=== PATIENT | female | born 2000 | race Caucasian/White ===

== ENCOUNTER 2021-07-04 17:48 | Inpatient (IN) | payer MEDICAID, OTHER ==
--- NOTE | 2021-07-04 19:53 | ED ---
Psych HPI - General Chief Complaint: Psychiatric Symptoms Stated Complaint: Mental health eval Time Seen by Provider: 07/04/21 19:19 Source: patient, family, RN notes reviewed Mode of arrival: ambulatory - History of Present Illness Initial Comments: 21-year-old female with a long history depression who states he try to kill her self for last 2 days she states she tried drown herself in a bathtub which did not work well she try to take a bunch of her medications with vodka that didn't work either. She states she slept for about 12 hours she denies any alcohol in the last day or so she does use recreational marijuana. She states she did feeling very depressed ever since her child from [place] earlier in 2020. No other current complaints or modifying factors per brother was present in the room during my interview MD Complaint: suicidal ideation, feels depressed - Related Data Home Medications Medication Instructions Recorded Confirmed ARIPiprazole [Abilify] 15 mg PO DAILY@1200 07/04/21 07/04/21 LORazepam [Ativan] 0.5 - 1 mg PO BID PRN 07/04/21 07/04/21 Allergies Allergy/AdvReac Type Severity Reaction Status Date / Time No Known Allergies Allergy Verified 07/04/21 20:43 Review of Systems ROS Statement: Those systems with pertinent positive or pertinent negative responses have been documented in the HPI. ROS Other: All systems not noted in ROS Statement are negative. Past Medical History Past Medical History: No Reported History History of Any Multi-Drug Resistant Organisms: None Reported Past Surgical History: No Surgical Hx Reported Past Psychological History: Anxiety, Depression Smoking Status: Current every day smoker Past Alcohol Use History: Occasional Past Drug Use History: Marijuana - Past Family History Mother Family Medical History: Hyperlipidemia General Exam - General Exam Comments Initial Comments: This is a well-developed well-nourished awake alert oriented 3 female Limitations: no limitations General appearance: alert, in no apparent distress Head exam: Present: atraumatic, normocephalic, normal inspection Eye exam: Present: normal appearance, PERRL, EOMI. Absent: scleral icterus, conjunctival injection, periorbital swelling ENT exam: Present: normal exam, mucous membranes moist Neck exam: Present: normal inspection. Absent: tenderness, meningismus, lymphadenopathy Respiratory exam: Present: normal lung sounds bilaterally. Absent: respiratory distress, wheezes, rales, rhonchi, stridor Cardiovascular Exam: Present: regular rate, normal rhythm, normal heart sounds. Absent: systolic murmur, diastolic murmur, rubs, gallop, clicks GI/Abdominal exam: Absent: distended, tenderness, guarding, rebound, rigid Extremities exam: Present: normal inspection, full ROM, normal capillary refill. Absent: tenderness, pedal edema, joint swelling, calf tenderness Back exam: Present: normal inspection Neurological exam: Present: alert, oriented X3, CN II-XII intact Psychiatric exam: Present: depressed, suicidal ideation Skin exam: Present: warm, dry, intact, normal color. Absent: rash Course Vital Signs 07/04/21 07/04/21 17:53 19:43 Temperature 98.7 F 98.5 F Pulse Rate 95 91 Respiratory 20 16 Rate Blood Pressure 113/76 109/62 O2 Sat by Pulse 99 100 Oximetry - Reevaluation(s) Reevaluation #1: 07/04/21 20:22 Evaluation process the patient's care will be endorsed to Dr. Hernandez at our shift change at 9 PM Medical Decision Making - Medical Decision Making The patient was endorsed to the night time doctor pending EPS eval and was admitted - Lab Data Lab Results 07/04/21 07/04/21 07/04/21 Range/Units 20:03 20:03 20:03 Urine Color Urine Appearance (Clear) Urine pH (5.0-8.0) Ur Specific [place] (1.001-1.035) Urine Protein (Negative) Urine Glucose (UA) (Negative) Urine Ketones (Negative) Urine Blood (Negative) Urine Nitrite (Negative) Urine Bilirubin (Negative) Urine Urobilinogen (<2.0) mg/dL Ur Leukocyte Esterase (Negative) Urine RBC (0-5) /hpf Urine WBC (0-5) /hpf Ur Squamous Epith Cells (0-4) /hpf Amorphous Sediment (None) /hpf Urine Bacteria (None) /hpf Urine Mucus (None) /hpf Urine HCG, Qual Not Detected (Not Detectd) Salicylates <1.0 mg/dL Urine Opiates Screen Not Detected (NotDetected) Ur Oxycodone Screen Not Detected (NotDetected) Urine Methadone Screen Not Detected (NotDetected) Ur Propoxyphene Screen Not Detected (NotDetected) Acetaminophen <10.0 ug/mL Ur Barbiturates Screen Not Detected (NotDetected) U Tricyclic Antidepress Not Detected (NotDetected) Ur Phencyclidine Scrn Not Detected (NotDetected) Ur Amphetamines Screen Not Detected (NotDetected) U Methamphetamines Scrn Not Detected (NotDetected) U Benzodiazepines Scrn Detected H (NotDetected) Urine Cocaine Screen Not Detected (NotDetected) U Marijuana (THC) Screen Detected H (NotDetected) Coronavirus (PCR) (Not Detectd) 07/05/21 07/05/21 Range/Units 00:00 00:55 Urine Color Yellow Urine Appearance Turbid H (Clear) Urine pH 7.0 (5.0-8.0) Ur Specific [place] 1.027 (1.001-1.035) Urine Protein Trace H (Negative) Urine Glucose (UA) Negative (Negative) Urine Ketones Negative (Negative) Urine Blood Negative (Negative) Urine Nitrite Negative (Negative) Urine Bilirubin Negative (Negative) Urine Urobilinogen 8.0 (<2.0) mg/dL Ur Leukocyte Esterase Large H (Negative) Urine RBC 5 (0-5) /hpf Urine WBC 118 H (0-5) /hpf Ur Squamous Epith Cells 3 (0-4) /hpf Amorphous Sediment Occasional H (None) /hpf Urine Bacteria Rare H (None) /hpf Urine Mucus Rare H (None) /hpf Urine HCG, Qual (Not Detectd) Salicylates mg/dL Urine Opiates Screen (NotDetected) Ur Oxycodone Screen (NotDetected) Urine Methadone Screen (NotDetected) Ur Propoxyphene Screen (NotDetected) Acetaminophen ug/mL Ur Barbiturates Screen (NotDetected) U Tricyclic Antidepress (NotDetected) Ur Phencyclidine Scrn (NotDetected) Ur Amphetamines Screen (NotDetected) U Methamphetamines Scrn (NotDetected) U Benzodiazepines Scrn (NotDetected) Urine Cocaine Screen (NotDetected) U Marijuana (THC) Screen (NotDetected) Coronavirus (PCR) Not Detected (Not Detectd) Disposition Clinical Impression: Depression, Suicidal ideation Disposition: TRANSFER TO PSYCH HOSP/UNIT Condition: Stable
[2021-07-04 20:36] LABS: Amphetamine Screen,Urine Not Detected (NotDetected); Barbiturate Screen,Urine Not Detected (NotDetected); Benzodiazepines Screen,Urine Detected (NotDetected); Cocaine Screen,Urine Not Detected (NotDetected); Methadone Screen, Urine Not Detected (NotDetected); Opiate Screen,Urine Not Detected (NotDetected); Oxycodone Screen, Urine Not Detected (NotDetected); Phencyclidine Screen,Urine Not Detected (NotDetected); Tricyclic Antidepressant,Urine Not Detected (NotDetected); Urn Cannabinoid Scrn Detected (NotDetected)
[2021-07-04 20:39] LABS: Acetaminophen <10.0 ug/mL; Salicylate <1.0 mg/dL
[2021-07-05] MEDS ORDERED: ACETAMINOPHEN TAB 325 MG TAB PO STA (01:01)
[2021-07-05] MEDS ORDERED: IBUPROFEN 600 MG TAB PO STA (01:01)
[2021-07-05] MEDS ORDERED: HALOPERIDOL LACTATE 5 MG/ML 1 ML VIAL IM PRN (01:41)
[2021-07-05] MEDS ORDERED: MAG HYDROX/AL HYDROX/SIMETH 30 ML CUP PO PRN (01:41)
[2021-07-05] MEDS ORDERED: LORazepam 1 MG TAB PO PRN (01:41)
[2021-07-05] MEDS ORDERED: haloperidoL 5 MG TAB PO PRN (01:46)
[2021-07-05] MEDS ORDERED: LORazepam 2 MG/ML INJ IM PRN (01:46)
[2021-07-05 02:13] LABS: Amorphous Sediment,Urine Occasional /hpf; Appearance,Urine Turbid (Clear); Bacteria,Urine Rare /hpf; Bilirubin,Urine Negative (Negative); Blood,Urine Negative (Negative); Color,Urine Yellow; Glucose,Urine (UA) Negative (Negative); Ketones,Urine Negative (Negative); Leukocyte Esterase,Urine Large (Negative); Mucus,Urine Rare /hpf; Nitrite,Urine Negative (Negative); Protein,Urine Trace (Negative); RBC,Urine 5 /hpf (0-5); Specific Gravity,Urine 1.027 (1.001-1.035); Squamous Epithelial Cell,Urine 3 /hpf (0-4); WBC,Urine 118 /hpf (0-5)
[2021-07-05] MEDS ORDERED: lamoTRIgine 25 MG TAB PO SCH (12:30)
--- NOTE | 2021-07-05 12:32 | P.HP ---
Psychiatric H&P - . H&P Date: 07/05/21 History & Physical: Allergies Allergy/AdvReac Type Severity Reaction Status Date / Time No Known Allergies Allergy Verified 07/04/21 20:43 Vital Signs Temp 97.7 F 07/05/21 08:00 Pulse 124 H 07/05/21 08:00 Resp 16 07/05/21 08:00 BP 105/52 07/05/21 08:00 Pulse Ox 100 07/05/21 08:00 Intake & Output 07/04/21 07/05/21 07/05/21 18:59 06:59 18:59 Weight 61.235 kg 61.235 kg Laboratory Last Values Urine Color Yellow 07/05/21 00:00 Urine Appearance Turbid (Clear) H 07/05/21 00:00 Urine pH 7.0 (5.0-8.0) 07/05/21 00:00 Ur Specific [place] 1.027 (1.001-1.035) 07/05/21 00:00 Urine Protein Trace (Negative) H 07/05/21 00:00 Urine Glucose (UA) Negative (Negative) 07/05/21 00:00 Urine Ketones Negative (Negative) 07/05/21 00:00 Urine Blood Negative (Negative) 07/05/21 00:00 Urine Nitrite Negative (Negative) 07/05/21 00:00 Urine Bilirubin Negative (Negative) 07/05/21 00:00 Urine Urobilinogen 8.0 mg/dL (<2.0) 07/05/21 00:00 Ur Leukocyte Esterase Large (Negative) H 07/05/21 00:00 Urine RBC 5 /hpf (0-5) 07/05/21 00:00 Urine WBC 118 /hpf (0-5) H 07/05/21 00:00 Ur Squamous Epith Cells 3 /hpf (0-4) 07/05/21 00:00 Amorphous Sediment Occasional /hpf (None) H 07/05/21 00:00 Urine Bacteria Rare /hpf (None) H 07/05/21 00:00 Urine Mucus Rare /hpf (None) H 07/05/21 00:00 Urine HCG, Qual Not Detected (Not Detectd) 07/04/21 20:03 Salicylates <1.0 mg/dL 07/04/21 20:03 Urine Opiates Screen Not Detected (NotDetected) 07/04/21 20:03 Ur Oxycodone Screen Not Detected (NotDetected) 07/04/21 20:03 Urine Methadone Screen Not Detected (NotDetected) 07/04/21 20:03 Ur Propoxyphene Screen Not Detected (NotDetected) 07/04/21 20:03 Acetaminophen <10.0 ug/mL 07/04/21 20:03 Ur Barbiturates Screen Not Detected (NotDetected) 07/04/21 20:03 U Tricyclic Antidepress Not Detected (NotDetected) 07/04/21 20:03 Ur Phencyclidine Scrn Not Detected (NotDetected) 07/04/21 20:03 Ur Amphetamines Screen Not Detected (NotDetected) 07/04/21 20:03 U Methamphetamines Scrn Not Detected (NotDetected) 07/04/21 20:03 U Benzodiazepines Scrn Detected (NotDetected) H 07/04/21 20:03 Urine Cocaine Screen Not Detected (NotDetected) 07/04/21 20:03 U Marijuana (THC) Screen Detected (NotDetected) H 07/04/21 20:03 Coronavirus (PCR) Not Detected (Not Detectd) 07/05/21 00:55 07/05/21 12:25 IDENTIFYING DATA: Patient is a 21-year-old female who is currently living alone in the house has 2 kids and currently works in a factory. HPI: Patient presented to the hospital yesterday with complaints of depression and a overdose at home. Patient was admitted voluntarily to the mental health unit. Patient is being followed by Dr. Silvestre at [facility] was previously on Abilify. Patient was seen today participating in group and agreeable to speak to writer producer in the office. She appeared to be fairly tearful during the interview and states that she's been feeling depressed and anxious. She claims that she has been dealing with this chronically however most recently has been increasing. She claims that she was having suicidal thoughts and tried to overdose on 10 pills of Ativan at home. She claims that she also drink alcohol approximately 4 shots. She states that she slept for 12 hours and then woke up Thursday. She states that she told her mom and also human resources at work who referred her to a counselor. She states that after she spoke with a counselor they advised her to go to the hospital. Patient did mention that she has been going through a significant stressor recently as her daughter 9 months ago due to covid. She states that she has not been coping well at all with this. She states that she's been sleeping a lot at home. She states that her anxiety has been more severe. She claims that she is not having any paranoia not endorsing any delusions. She states she sleeps approximately 7 hours a night. Denying any nightmares. She did mention that she has a history of manic episodes where she does not need any sleep and engages in risky behaviors. She states that these last about 2 days. Patient denies any current suicidal or homicidal ideations intent or plan. At this time patient denies any auditory or visual hallucinations. Patient denies any flight of ideas racing thoughts and increased in goal directed behavior. Patient admits to using marijuana occasionally. She states that she uses nicotine products. PAST PSYCHIATRIC HISTORY: Patient states that she has a history of bipolar depression. She was previously on Abilify. Patient denies any previous psychiatric hospitalizations. She claims that she currently follows up with Dr. Silvestre at [facility]. She states that she has had 2 overdoses in the past on pills. PMH:denies ALLERGIES: as per EMR CHEMICAL DEPENDENCY HISTORY: as per HPI FAMILY PSYCHIATRIC/SUBSTANCE USE HISTORY: States that her mother has de pression. She claims that both her brother has some form of mental illness. SOCIAL HISTORY: Patient was born and raised in [facility]. She states that she completed high school. 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 She states that she has 2 kids. He is currently and living alone in a house. She denies any legal history. MENTAL STATUS EXAM: General Appearance: Patient appears to be tearful, wearing glasses, stated age is alert, directable, and attempts to cooperate. Patient appears to have poor hygiene and grooming. Behavior: Patient is seated without any agitated behavior. Tearful. Speech: Patient's speech is fluent and nonpressured. Hesitant. Mood/Affect: Patient reports their mood is depressed and anxious, affect is congruent Suicidality/Homicidality: Patient denies having any homicidal ideation intent or plan. Denies any suicidal ideations intent or plan Perceptions: Patient denies any visual hallucinations and denies any auditory hallucinations Though content/process: There is no evidence of any delusional thought content and thought process is linear and goal-directed. [place] Memory and concentration: AOX3, grossly intact for the purposes of this session. Can spell "WORLD" backwards Judgment and insight: poor STRENGTHS/WEAKNESSES: strength is that patient is resilient. Weakness is that patient has poor judgment and is impulsive INTELLECT: average IMPRESSIONS: Bipolar disorder, current depression anxiety disorder NOS Cannabis use disorder mild Nicotine dependence PLAN: -Patient is admitted under voluntary status to MHU for stabilization of psychiatric symptoms and safety. Patient has signed adult voluntary form and medication consent and is placed in patient's chart. -Medications : Will start patient on Lamictal 25 mg twice a day for mood stabilization/depression. plan will be to increase to 50mg bid over the weekend. spoke with patient about monitoring for a rash and pt agreed and verbally understood. zoloft 50 mg daily for mood/anxiety. -Ativan and Haldol PRN for agitation/aggression -Patient was counselled on substance abuse and desired to cut back on use -Patient was informed of the risks, benefits and side effects of the medication and patient verbally consented to taking the medications. Patient signed med consent form and was placed in chart. -Internal Medicine consult to perform medical evaluation and physical. -NRT - nicotine patch -SW on board for discharge planning. Encourage patient to participate in groups to work on coping skills.
[2021-07-05] MEDS: SERTRALINE 50 MG TAB PO SCH (14:44)
[2021-07-05] MEDS: lamoTRIgine 25 MG TAB PO SCH ×2 (14:44→20:20)
--- NOTE | 2021-07-05 23:24 | P.CONS ---
History of Present Illness - Reason for Consult Consult date: 07/05/21 - History of Present Illness The patient is a 21-year-old female with a PMH of marijuana abuse who presented to the emergency room with complaints of depression and suicidal ideation. The patient reports that she recently lost her 2 month old daughter to COVID and that it has been very difficult for her. She reports attempting to commit suicide by taking 10 of her oral Ativan's along with alcohol. She notes waking up roughly 12 hours later. She denied any additional complaints. She denied chest discomfort, shortness of, chills, cough, nausea, vomiting. Denied urinary complaints. Review of systems: Pertinent positives and negatives as discussed in HPI, a complete review of systems was performed and all other systems are negative. Physical examination: General: non toxic, no distress, appears at stated age, normal weight Derm: no unusual rashes/lesions no unusual ecchymoses, warm, dry Head: atraumatic, normocephalic, symmetric Eyes: EOMI, no lid lag, anicteric sclera, pupils equal round reactive to light ENT: Nose and ears atraumatic, no thrush, no pharyngeal erythema Neck: No thyromegaly, no cervical lymphadenopathy, trachea midline, supple Mouth: no lip lesion, mucus membranes moist Cardiovascular: S1S2 reg, no murmur, positive posterior tibial pulse bilateral, no edema, capillary refill less than 2 seconds Lungs: CTA bilateral, no rhonchi, no rales , no accessory muscle use Abdominal: soft, nontender to palpation, no guarding, no appreciable organomegaly, normal bowel sounds Ext: no gross muscle atrophy, muscle strength 5 out of 5 in all 4 extremities grossly, no contractures, Neuro: CN II-XI grossly intact, light touch intact all 4 extremities, finger to nose within normal limits, Psych: Alert, oriented, appropriate affect Assessment/plan Abnormal UA -Likely colonization as patient is denying any urinary complaints -Hold off on antibiotic at this time Marijuana abuse -Advised on importance of cessation Depression and suicidal ideation -As per psychiatry Thank you for allowing us to participate in the care of this patient. We will follow peripherally. Do not hesitate to contact us with questions. Someone can be reached from the [facility] hospitalist group at all hours of the day at [phone]. Past Medical History Past Medical History: No Reported History History of Any Multi-Drug Resistant Organisms: None Reported Past Surgical History: No Surgical Hx Reported Past Anesthesia/Blood Transfusion Reactions: No Reported Reaction Past Psychological History: Anxiety, Depression Smoking Status: Vaper Past Alcohol Use History: Rare Past Drug Use History: Marijuana - Past Family History Mother Family Medical History: Hyperlipidemia Medications and Allergies Home Medications Medication Instructions Recorded Confirmed Type ARIPiprazole [Abilify] 15 mg PO DAILY@1200 07/04/21 07/04/21 History LORazepam [Ativan] 0.5 - 1 mg PO BID PRN 07/04/21 07/04/21 History Allergies Allergy/AdvReac Type Severity Reaction Status Date / Time No Known Allergies Allergy Verified 07/04/21 20:43 Physical Exam Vitals: Vital Signs Temp Pulse Resp BP Pulse Ox 07/05/21 08:00 97.7 F 124 H 16 105/52 100 07/05/21 02:46 97.8 F 74 16 100/52 97 Results Labs: Abnormal Lab Results - Last 24 Hours (Table) 07/05/21 Range/Units 00:00 Urine Appearance Turbid H (Clear) Urine Protein Trace H (Negative) Ur Leukocyte Esterase Large H (Negative) Urine WBC 118 H (0-5) /hpf Amorphous Sediment Occasional H (None) /hpf Urine Bacteria Rare H (None) /hpf Urine Mucus Rare H (None) /hpf
[2021-07-06] MEDS: lamoTRIgine 25 MG TAB PO SCH ×2 (08:41→21:12)
[2021-07-06] MEDS: SERTRALINE 50 MG TAB PO SCH (08:41)
[2021-07-06 09:23] LABS: Basophils # (A) 0.1 k/uL (0-0.2); Basophils % (A) 1 %; Eosinophils # (A) 0.1 k/uL (0-0.7); Eosinophils % (A) 2 %; HCT 44.8 % (34.0-46.0); HGB 14.5 gm/dL (11.4-16.0); Lymphocytes % (A) 29 %; MCH 28.7 pg (25.0-35.0); MCHC 32.2 g/dL (31.0-37.0); MCV 89.1 fL (80.0-100.0); Mean Platelet Volume 9.1; Monocytes # (A) 0.3 k/uL (0-1.0); Monocytes % (A) 4 %; Neutrophils # (A) 4.4 k/uL (1.3-7.7); Neutrophils % (A) 63 %; Platelet Count 193 k/uL (150-450); RBC 5.03 m/uL (3.80-5.40); RDW 13.7 % (11.5-15.5)
[2021-07-06 09:31] LABS: ALT 13 U/L (4-34); AST 21 U/L (14-36); African American GFR (CKD) >90 (>60 ml/min/1.73 sqM); Albumin 4.3 g/dL (3.5-5.0); Alkaline Phosphatase 64 U/L (38-126); Anion Gap 6 mmol/L; Blood Urea Nitrogen 12 mg/dL (7-17); Calcium 9.8 mg/dL (8.4-10.2); Carbon Dioxide 26 mmol/L (22-30); Chloride 106 mmol/L (98-107); Glucose 57 mg/dL (74-99); Non-African American GFR(CKD) >90 (>60 ml/min/1.73 sqM); Potassium 4.3 mmol/L (3.5-5.1); Sodium 138 mmol/L (137-145); Total Bilirubin 0.7 mg/dL (0.2-1.3); Total Protein 7.3 g/dL (6.3-8.2)
--- NOTE | 2021-07-06 13:20 | P.PN ---
Progress Note - Text Progress Note Date: 07/06/21 Interval History: Patient was seen in her room and was directable and agreeable to speak with typewriter ribbon winder. Patient states that she has a history of bipolar depression. She was previously on Abilify. Patient denies any previous psychiatric hospitalizations. She claims that she currently follows up with Dr. Silvestre at [facility]. She states that she has had 2 overdoses in the past on pills.. At this time patient denies any suicidal or homical ideations, intent or plan. Patient denies any auditory, visual hallucinations and denies any paranoia or delusions. Patient denies any side effects from the medications and has been compliant with meds. Mental Status Exam: General Appearance: Patient appears to be stated age is alert, directable, and cooperative. Behavior: Patient is calmly seated without any agitated behavior. Speech: Patient's speech is fluent and nonpressured. Mood/Affect: Mood is improving mildly, affect is congruent and constricted. Suicidality/Homicidality: Patient denies having any suicidal or homicidal ideation intent or plan. Perceptions: Patient denies any visual hallucinations and denies any auditory hallucinations Though content/process: There is no evidence of any delusional thought content and thought process is linear and goal-directed. Memory and concentration: AOX3, grossly intact for the purposes of this session Judgment and insight: Improving mildly Assessment This patient was admitted with depressive symptomatology and continues to show symptoms of her depression necessitating hospitalization. Plan: -Patient continues to meet criteria for inpatient psychiatric admission for symptom stabilization and safety. -Medications: Continue medications as before -When necessary Ativan and Haldol for agitation/aggression. -SW on board for discharge planning. Encouraged the patient to participate in milieu.
[2021-07-06] MEDS: ACETAMINOPHEN TAB 325 MG TAB PO PRN ×2 (14:39→21:13)
[2021-07-06 21:18] LABS: Glucose,Whole Blood 92 mg/dL (75-99)
[2021-07-06] MEDS: MAGNESIUM HYDROXIDE 2,400 MG/10 ML CUP PO PRN (21:40)
[2021-07-07 07:32] LABS: Glucose,Whole Blood 87 mg/dL (75-99)
[2021-07-07 08:24] VITALS: RESP 16
[2021-07-07] MEDS: ACETAMINOPHEN TAB 325 MG TAB PO PRN ×2 (08:29→12:42)
[2021-07-07] MEDS: lamoTRIgine 25 MG TAB PO SCH ×2 (08:30→20:51)
[2021-07-07] MEDS: SERTRALINE 50 MG TAB PO SCH (08:30)
[2021-07-07] MEDS: polyethylene glycoL 3350 17 GM POWD.PACK PO SCH (08:48)
--- NOTE | 2021-07-07 12:45 | P.PN ---
Progress Note - Text Progress Note Date: 07/07/21 Interval History: Patient was seen in the office with the office door open and was directable and agreeable to speak with song writer. This 21-year-old female stated that she attempted suicide for the first time. She stated that she continues to take Lamictal and Zoloft.. At this time patient denies any suicidal or homical ideations, intent or plan. Patient denies any auditory, visual hallucinations and denies any paranoia or delusions. Patient denies any side effects from the medications and has been compliant with meds. Mental Status Exam: General Appearance: Patient appears to be stated age is alert, directable, and cooperative. Behavior: Patient is calmly seated without any agitated behavior. Speech: Patient's speech is fluent and nonpressured. Mood/Affect: Mood is improving mildly, affect is congruent and constricted. Suicidality/Homicidality: Patient denies having any suicidal or homicidal ideation intent or plan. Perceptions: Patient denies any visual hallucinations and denies any auditory hallucinations Though content/process: There is no evidence of any delusional thought content and thought process is linear and goal-directed. Memory and concentration: AOX3, grossly intact for the purposes of this session Judgment and insight: Improving mildly Assessment Patient was admitted to Hospital with the depression and overdose. Plan: -Patient continues to meet criteria for inpatient psychiatric admission for symptom stabilization and safety. -Medications: Continue medication as before -When necessary Ativan and Haldol for agitation/aggression. -SW on board for discharge planning. Encouraged the patient to participate in milieu.
[2021-07-07] MEDS: MAGNESIUM HYDROXIDE 2,400 MG/10 ML CUP PO PRN (21:01)
[2021-07-08] MEDS: MAGNESIUM HYDROXIDE 2,400 MG/10 ML CUP PO PRN (05:56)
[2021-07-08] MEDS: polyethylene glycoL 3350 17 GM POWD.PACK PO SCH (08:47)
[2021-07-08] MEDS: lamoTRIgine 25 MG TAB PO SCH (08:47)
[2021-07-08] MEDS: SERTRALINE 50 MG TAB PO SCH (08:47)
[2021-07-08 08:48] VITALS: BP 120/60; PULSE 76; TEMP 98.6
--- NOTE | 2021-07-08 11:26 | P.DS ---
Providers Date of admission: 07/05/21 01:40 Expected date of discharge: 07/08/21 Attending physician: Handy Page MD Consults: 07/05/21 01:41 Consult Physician Routine Consulting Provider: Nini Physician Consult Reason/Comments: h&p Do you want consulting provider notified?: Yes Primary care physician: Tanisha Willard MD - Discharge Diagnosis(es) (1) Bipolar disorder current episode depressed Current Visit: Yes Status: Acute Priority: High (2) Anxiety disorder Current Visit: Yes Status: Acute Priority: Medium (3) Cannabis use disorder, mild, abuse Current Visit: Yes Status: Acute Priority: Low (4) Nicotine dependence Current Visit: Yes Status: Acute Priority: Low Hospital Course: Admission HPI: Admission note was completed by magazine writer "Patient is a 21-year-old female who is currently living alone in the house has 2 kids and currently works in a factory. Patient presented to the hospital yesterday with complaints of depression and a overdose at home. Patient was admitted voluntarily to the mental health unit. Patient is being followed by Dr. Silvestre at [facility] was previously on [facility]. Patient was seen today participating in group and agreeable to speak to magazine writer in the office. She appeared to be fairly tearful during the interview and states that she's been feeling depressed and anxious. She claims that she has been dealing with this chronically however most recently has been increasing. She claims that she was having suicidal thoughts and tried to overdose on 10 pills of Ativan at home. She claims that she also drink alcohol approximately 4 shots. She states that she slept for 12 hours and then woke up Thursday. She states that she told her mom and also human resources at work who referred her to a counselor. She states that after she spoke with a counselor they advised her to go to the hospital. Patient did mention that she has been going through a significant stressor recently as her daughter 9 months ago due to covid. She states that she has not been coping well at all with this. She states that she's been sleeping a lot at home. She states that her anxiety has been more severe. She claims that she is not having any paranoia not endorsing any delusions. She states she sleeps approximately 7 hours a night. Denying any nightmares. She did mention that she has a history of manic episodes where she does not need any sleep and engages in risky behaviors. She states that these last about 2 days. Patient denies any current suicidal or homicidal ideations intent or plan. At this time patient denies any auditory or visual hallucinations. Patient denies any flight of ideas racing thoughts and increased in goal directed behavior. Patient admits to using marijuana occasi onally. She states that she uses nicotine products." Hospital course: Upon admission to the unit patient was directable and agreeable to commence treatment and signed adult voluntary form. Patient got along well with other patients on the unit and followed unit protocol. Patient was compliant with the medications and denied any side effects throughout hospital course. Patient was started on Lamictal and titrated up to a dose of 100 mg daily for mood stabilization/depression, Zoloft 50 mg daily for mood/anxiety. Patient spoke of her stressors and engaged in therapy both group and individual. Patient was also seen by medical team for history and physical exam. Throughout the course of the hospitalization patient gradually improved with regards to mood, anxiety, sleep and became more future oriented with improved insight and judgment. On the day of discharge patient denied any suicidal or homicidal ideations intent or plan denied any auditory or visual hallucinations. Patient endorsed wanting to live for her health and her children. The patient denied any access to guns or weapons. Patient denied any paranoia and did not endorse any delusions. Patient does not have a significant history of substance abuse however was counseled on abstaining from all substances including alcohol and marijuana. Patient was also counseled on the medications and need for regular compliance and was encouraged to follow-up with their outpatient appointment for mental health and also for primary care. Prior to discharge a family meeting will be arranged by social economist to answer any questions and ensure safety upon discharge. Mental status exam: General Appearance: Patient appears to be stated age is alert, pleasant, and cooperative. Patient is in no acute distress and has improved hygiene and grooming Behavior: Patient is calmly seated without any agitated behavior. Speech: Patient's speech is fluent and nonpressured. Mood/Affect: Patient reports their mood is "good", affect is congruent and euthymic. Suicidality/Homicidality: Patient denies having any suicidal or homicidal ideation intent or plan. Perceptions: Patient denies any auditory or visual hallucinations. Though content/process: There is no evidence of any delusional thought content and thought process is linear and goal-directed. more future oriented Memory and concentration: AOX3, grossly intact for the purposes of this session. Can spell "WORLD" backwards correctly. Judgment and insight: improved with guarded prognosis Impression: Bipolar disorder, current episode depressed Anxiety disorder unspecified Cannabis use disorder mild Nicotine dependence Plan: -Continue with discharge today as patient has improved and stabilized psychiatrically and is not currently an imminent threat to himself and/or others. Patient will remain at chronically elevated risk for harm to self and/or others due to her impulsivity. -Continue medications: Lamictal 100 mg daily for mood stabilization/depression, Zoloft 50 mg daily for mood/anxiety. -Patient was counseled on the need for medication compliance and appropriate follow-up at mental health and also primary care for medical issues. Patient verbalized understanding and agreed. -Social work to arrange for and conduct family meeting to ensure safety upon discharge and answer any questions/concerns. Social work also to arrange for patients follow up appointments for psychiatric care along with follow up with primary care provider. -Patient counseled on abstaining from recreational drugs and marijuana and alcohol. Was informed/educated on the adverse effects on their physical and mental health. Patient verbally agreed and understood. -Patient was instructed to return to the hospital or seek immediate medical care if their psychiatric or medical symptoms do worsen or reoccur. Allergies Allergy/AdvReac Type Severity Reaction Status Date / Time No Known Allergies Allergy Verified 07/04/21 20:43 Laboratory Results WBC 7.0 k/uL (3.8-10.6) 07/06/21 08:46 RBC 5.03 m/uL (3.80-5.40) 07/06/21 08:46 Hgb 14.5 gm/dL (11.4-16.0) 07/06/21 08:46 Hct 44.8 % (34.0-46.0) 07/06/21 08:46 MCV 89.1 fL (80.0-100.0) 07/06/21 08:46 MCH 28.7 pg (25.0-35.0) 07/06/21 08:46 MCHC 32.2 g/dL (31.0-37.0) 07/06/21 08:46 RDW 13.7 % (11.5-15.5) 07/06/21 08:46 Plt Count 193 k/uL (150-450) 07/06/21 08:46 MPV 9.1 07/06/21 08:46 Neutrophils % 63 % 07/06/21 08:46 Lymphocytes % 29 % 07/06/21 08:46 Monocytes % 4 % 07/06/21 08:46 Eosinophils % 2 % 07/06/21 08:46 Basophils % 1 % 07/06/21 08:46 Neutrophils # 4.4 k/uL (1.3-7.7) 07/06/21 08:46 Lymphocytes # 2.0 k/uL (1.0-4.8) 07/06/21 08:46 Monocytes # 0.3 k/uL (0-1.0) 07/06/21 08:46 Eosinophils # 0.1 k/uL (0-0.7) 07/06/21 08:46 Basophils # 0.1 k/uL (0-0.2) 07/06/21 08:46 Sodium 138 mmol/L (137-145) 07/06/21 08:46 Potassium 4.3 mmol/L (3.5-5.1) 07/06/21 08:46 Chloride 106 mmol/L (98-107) 07/06/21 08:46 Carbon Dioxide 26 mmol/L (22-30) 07/06/21 08:46 Anion Gap 6 mmol/L 07/06/21 08:46 BUN 12 mg/dL (7-17) 07/06/21 08:46 Creatinine 0.83 mg/dL (0.52-1.04) 07/06/21 08:46 Est GFR (CKD-EPI)AfAm >90 (>60 ml/min/1.73 sqM) 07/06/21 08:46 Est GFR (CKD-EPI)NonAf >90 (>60 ml/min/1.73 sqM) 07/06/21 08:46 Glucose 57 mg/dL (74-99) L 07/06/21 08:46 POC Glucose (mg/dL) 87 mg/dL (75-99) 07/07/21 07:30 POC Glu Trailer Steerer JADEN Niharika Minaya 07/07/21 07:[address] Glu mg/dL 109 07/06/21 08:46 Hemoglobin A1c 5.4 % (0.0-6.0) 07/06/21 08:46 Calcium 9.8 mg/dL (8.4-10.2) 07/06/21 08:46 Total Bilirubin 0.7 mg/dL (0.2-1.3) 07/06/21 08:46 AST 21 U/L (14-36) 07/06/21 08:46 ALT 13 U/L (4-34) 07/06/21 08:46 Alkaline Phosphatase 64 U/L (38-126) 07/06/21 08:46 Total Protein 7.3 g/dL (6.3-8.2) 07/06/21 08:46 Albumin 4.3 g/dL (3.5-5.0) 07/06/21 08:46 TSH 0.476 mIU/L (0.465-4.680) 07/06/21 08:46 Urine Color Yellow 07/05/21 00:00 Urine Appearance Turbid (Clear) H 07/05/21 00:00 Urine pH 7.0 (5.0-8.0) 07/05/21 00:00 Ur Specific [place] 1.027 (1.001-1.035) 07/05/21 00:00 Urine Protein Trace (Negative) H 07/05/21 00:00 Urine Glucose (UA) Negative (Negative) 07/05/21 00:00 Urine Ketones Negative (Negative) 07/05/21 00:00 Urine Blood Negative (Negative) 07/05/21 00:00 Urine Nitrite Negative (Negative) 07/05/21 00:00 Urine Bilirubin Negative (Negative) 07/05/21 00:00 Urine Urobilinogen 8.0 mg/dL (<2.0) 07/05/21 00:00 Ur Leukocyte Esterase Large (Negative) H 07/05/21 00:00 Urine RBC 5 /hpf (0-5) 07/05/21 00:00 Urine WBC 118 /hpf (0-5) H 07/05/21 00:00 Ur Squamous Epith Cells 3 /hpf (0-4) 07/05/21 00:00 Amorphous Sediment Occasional /hpf (None) H 07/05/21 00:00 Urine Bacteria Rare /hpf (None) H 07/05/21 00:00 Urine Mucus Rare /hpf (None) H 07/05/21 00:00 Urine HCG, Qual Not Detected (Not Detectd) 07/04/21 20:03 Salicylates <1.0 mg/dL 07/04/21 20:03 Urine Opiates Screen Not Detected (NotDetected) 07/04/21 20:03 Ur Oxycodone Screen Not Detected (NotDetected) 07/04/21 20:03 Urine Methadone Screen Not Detected (NotDetected) 07/04/21 20:03 Ur Propoxyphene Screen Not Detected (NotDetected) 07/04/21 20:03 Acetaminophen <10.0 ug/mL 07/04/21 20:03 Ur Barbiturates Screen Not Detected (NotDetected) 07/04/21 20:03 U Tricyclic Antidepress Not Detected (NotDetected) 07/04/21 20:03 Ur Phencyclidine Scrn Not Detected (NotDetected) 07/04/21 20:03 Ur Amphetamines Screen Not Detected (NotDetected) 07/04/21 20:03 U Methamphetamines Scrn Not Detected (NotDetected) 07/04/21 20:03 U Benzodiazepines Scrn Detected (NotDetected) H 07/04/21 20:03 Urine Cocaine Screen Not Detected (NotDetected) 07/04/21 20:03 U Marijuana (THC) Screen Detected (NotDetected) H 07/04/21 20:03 Coronavirus (PCR) Not Detected (Not Detectd) 07/05/21 00:55 Vital Signs Temp 98.6 F 07/08/21 08:47 Pulse 76 07/08/21 08:47 Resp 16 07/08/21 08:47 BP 120/60 07/08/21 08:47 Pulse Ox 98 07/07/21 08:23 Intake & Output 07/07/21 07/08/21 07/08/21 18:59 06:59 18:59 Weight 60.6 kg Patient Condition at Discharge: Stable Plan - Discharge Summary Discharge Rx Participant: No New Discharge Prescriptions: New Sertraline [Zoloft] 50 mg PO DAILY 14 Days tab lamoTRIgine [LaMICtal] 100 mg PO DAILY 14 Days tab Acetaminophen Tab [Tylenol] 650 mg PO Q4HR PRN tab PRN Reason: Pain/Discomfort Discontinued LORazepam [Ativan] 0.5 - 1 mg PO BID PRN PRN Reason: Anxiety ARIPiprazole [Abilify] 15 mg PO DAILY@1200 Discharge Medication List Acetaminophen Tab [Tylenol] 650 mg PO Q4HR PRN tab 07/08/21 [Rx] Sertraline [Zoloft] 50 mg PO DAILY 14 Days tab 07/08/21 [Rx] lamoTRIgine [LaMICtal] 100 mg PO DAILY 14 Days tab 07/08/21 [Rx] Follow up Appointment(s)/Referral(s): Tanisha Willard MD [Primary Care Provider] - 1-2 days Patient Instructions/Handouts: Depression (DC), Help Prevent Suicide (DC), Suicide Prevention (DC) Activity/Diet/Wound Care/Special Instructions: Activity and diet as tolerated. Avoid the use of street drugs and alcohol. Take all medications as prescribed. When you are in need of refills on your medications please contact your medical provider and/or outpatient psychiatrist to have this done. Please go to scheduled outpatient appointment for aftercare treatment. If symptoms return or become worse, call the crisis line at and/or go to the nearest emergency room for evaluation Discharge Disposition: HOME SELF-CARE
== END 2021-07-08 13:28 | disposition home or self-care (01) | DRG 885 ==
LOC: EC 17:48 → 3MHU 07-05 01:40
PROVIDERS: ADMIT Psychiatry & Neurology Psychiatry; ATTEND Psychiatry & Neurology Psychiatry
DX: F31.30 Bipolar disorder, current episode depressed, mild or moderate severity, unspecified (principal); F17.210 Nicotine dependence, cigarettes, uncomplicated; Z71.51 Drug abuse counseling and surveillance of drug abuser; Z20.822 Contact with and (suspected) exposure to COVID-19; Z63.4 Disappearance and death of family member; Z63.5 Disruption of family by separation and divorce; Z60.2 Problems related to living alone; F41.9 Anxiety disorder, unspecified; T42.4X2A Poisoning by benzodiazepines, intentional self-harm, initial encounter; Z71.89 Other specified counseling; Z79.899 Other long term (current) drug therapy; Z81.8 Family history of other mental and behavioral disorders; Z82.49 Family history of ischemic heart disease and other diseases of the circulatory system; F12.90 Cannabis use, unspecified, uncomplicated
CPT/HCPCS: 36415; 80053; 80143; 80179; 80306; 81001; 81025; 82075; 83036; 84443; 85025; 87635; 99285